=== PATIENT | female | born 1955 | race Caucasian/White ===

== ENCOUNTER 2022-03-15 19:09 | Emergency (ER) | payer OTHER ==
--- OUTSIDE RECORDS SUMMARY | 2022-03-15 19:12 | XMS REPORT | Continuity of Care Document ---
:1955 Author Organization [facility] t Address [address] [place] [address] Care Team Providers Name Role Phone Juan SIEGEL, Rosi Primary Care Physician Juan Attending Clinician Unavailable JULES Attending Clinician Unavailable Jules Donovan MD Attending Clinician Payers Payer Name Policy Type Policy Number Effective Date Expiration Date S lupe MEDICARE A B [id number] 2018 00:00:00 [facility] [facility] [id number] 2022 SUPPLEMENTAL 00:00:00 Problems This patient has no known problems. Allergies, Adverse Reactions, Alerts Allergy Allergy Status Severity Reaction(s) Onset Inactive Treating Comm ents Source Name Type Date Date Clinician Dye Intermediate Propensi Active [facility] Red 3 ty to 03-06 College (Erythro adverse 00:00: of sine) reaction 00 Medicin s to e drug Propoxyp Propensi Active Other [facility] hene ty to 02-28 reaction( College adverse 00:00: s): rash of reaction 00 Medicin s to e drug Darvocet Adverse Active rash Common -N 50 Reaction [facility] Social History Social Habit Start Date Stop Date Quantity Comments Source History [facility] Alcohol Frequency of Medi cine History [facility] Alcohol Std Drinks of Med icine History [facility] Alcohol Binge of Medicine History of tobacco Cigarette Smoker [facility] use of Medicine Alcohol intake 2022-03-06 2022-03-06 1.43 /d [facility] Col lege 00:00:00 00:00:00 of Medicine Alcohol Comment 2022-03-06 2022-03-06 wine, wine [facility] Co llege 00:00:00 00:00:00 coolers. of Medicine Cigarettes smoked 2022-03-06 2022-03-06 [facility] current (pack per 00:00:00 00:00:00 of Medi cine day) - Reported Cigarette 2022-03-06 2022-03-06 [facility] pack-years 00:00:00 00:00:00 of Medicine Tobacco use and 2022-03-06 2022-03-06 Former smokeless [facility] exposure 00:00:00 00:00:00 tobacco user of Medicine [birth year] [facility] [employer]lege 00:00:00 00:00:00 of Medicine Smoking Status Start Date Stop Date Source Ex-smoker 2022-03-06 00:00:00 2022-03-06 00:00:00 [facility] ollege of Medicine Medications Ordered Filled Start Stop Current Ordering Indication Dosage Frequency Signature Comments Components Source Medication Medication Date Date Medication? Clinician (SIG) Name Name alendronate Yes alendronat [facility] (FOSAMAX) 03-06 e 35 mg College 35 MG 16:29: tablet of tablet 29 Medicin e amitriptyli Yes Daily. [facility] (ELAVIL) 03-06 College 10 MG 16:29: of tablet 29 Medicin e busPIRone Yes buspirone [facility] (BUSPAR) 5 03-06 5 mg College MG tablet 16:29: tablet of 29 Medicin e Calcium Yes 1 tablet [facility] Carb-Cholec 03-06 with a Colleg e alciferol 16:29: meal of 500-400 29 Medicin MG-UNIT e TABS Cyclobenzap Yes cyclobenza [facility] rine HCl 03-06 deondre 7.5 Colleg e 7.5 MG TABS 16:29: mg tablet o f 29 Medicin e Diclofenac Yes diclofenac [facility] Sodium 3 % 03-06 3 % [place] GEL 16:29: topical of 29 gel Medicin e duloxetine Yes duloxetine [facility] (CYMBALTA) 03-06 60 mg College 60 MG 16:29: capsule,de of capsule 29 layed Medicin release e estradiol Yes estradiol [facility] (ESTRACE) 03-06 0.01% (0.1 Misty ege 0.1 MG/GM 16:29: mg/gram) of vaginal 29 vaginal Medicin cream cream e INSERT 1/2 GRAM VAGINALLY TWICE A WEEK gabapentin Yes Every 6 [facility] (NEURONTIN) 6-08 hours. Colleg e 300 MG 16:29: of capsule 29 Medicin e gemfibrozil Yes TAKE 1 [facility] (LOPID) 600 03-06 TABLET 30 Col lege MG tablet 16:29: MINUTES of 29 BEFORE Medicin MORNING e AND EVENING MEALS TWICE A DAY hydrocodone Yes hydrocodon Willy -acetaminop 08 e 7.5 College hen (NORCO) 16:29: mg-acetami of 7.5-325 MG 29 nophen 325 Med icin per tablet mg tablet e TAKE 1 TABLET(S) 4 TIMES A DAY BY ORAL ROUTE DIRECTED FOR 28 DAYS. Influenza Yes Fluzone [facility] Vac Split 03-06 Quad [place] Quad 16:29: of (FLUZONE 29 (PF) 60 Medicin QUADRIVALEN mcg (15 e T) 0.5 ML mcg x MELINDA 4)/0.5 mL IM syringe TO BE ADMINISTER ED BY PHARMACIST FOR IMMUNIZATI ON lisinopril Yes lisinopril [facility] (PRINIVIL, 03-06 20 mg [place] ZESTRIL) 20 16:29: tablet of MG tablet 29 Medicin e meloxicam Yes meloxicam [facility] (MOBIC) 7.5 03-06 7.5 mg Colleg e MG tablet 16:29: tablet of 29 Medicin e Multiple Yes Willy Vitamins-Mi 03-06 [place] nerals 16:29: of (MULTIVITAM 29 Medicin INS/MINERAL e S ADULT OR) omeprazole Yes omeprazole [facility] (PRILOSEC) 03-06 40 mg College 40 MG 16:29: capsule,de of capsule 29 layed Medicin release e ondansetron Yes ondansetro [facility] (ZOFRAN) 8 6-08 n HCl 8 mg Col lege mg tablet 16:29: tablet of 29 TAKE 1 Medicin TABLET(S) e EVERY 8 HOURS BY ORAL ROUTE NEEDED FOR 7 DAYS. Pyridoxine Yes Willy HCl 6-08 [place] (VITAMIN 16:29: of B6) 200 MG 29 Medicin TABS e zolpidem Yes zolpidem 5 [facility] kelly (AMBIEN) 5 6-08 mg tablet Misty ege MG tablet 16:29: TAKE 1 of 29 TABLET BY Medicin MOUTH e EVERY DAY AT BEDTIME NEEDED Albuterol Yes ProAir [facility] Sulfate 608 [employer] e (PROAIR 16:29: 90 of RESPICLICK) 29 mcg/actuat Me dicin 108 (90 ion breath e Base) activated MCG/ACT AEPB oxybutynin Yes [id number] 5mg Take 1 [facility] (DITROPAN-X 6-08 Tablet by Col lege L) 5 MG CR 00:00: mouth of tablet 00 daily. Medicin e gabapentin Yes [facility] (NEURONTIN) 6-04 [place] 300 MG 00:00: of capsule 00 Medicin e nitrofurant Yes TAKE 1 [facility] oin, 4-19 CAPSULE BY [place] macrocrysta 00:00: MOUTH of l-monohydra 00 EVERY 12 Medi miley te, HOURS FOR e (MACROBID) 5 DAYS 100 MG capsule predniSONE 2020-09 Yes 2 tablet [facility] kelly (DELTASONE) 2-09 [place] 20 MG 00:00: of tablet 00 Medicin e Estrace Estrace Yes Gema _insert Com mon 03-12 [place] 1/2 gram [facility] 00:[facility]: - [facility] Gabapentin Gabapentin Yes Gema 1 capsule Common [place] [facility] Sertraline Sertraline Yes Gema TAKE 1 Common HCl HCl [place] TABLET Spirit DAILY [facility] Hydrocodone Hydrocodone Yes Gema 1 tablet Common -Acetaminop -Acetaminop [place] as needed Spirit hen hen [facility] Alendronate Alendronate Yes Gema 1 tablet Common Sodium Sodium [place] [facility] ProAir ProAir Yes Gema 2 puffs as Comm on RespiClick RespiClick [place] needed [facility] Daily Multi Daily Multi Yes Gema 1 tablet Common Vitamin/Min Vitamin/Min [place] Spirit erals erals [facility] Calcium Calcium Yes Gema 1 tablet Comm on 500+D3 500+D3 [place] with a [facility] meal [facility] BusPIRone BusPIRone Yes Gema 1 tablet Common HCl HCl [place] [facility] Duloxetine Duloxetine Yes Gema TAKE 1 Common HCl HCl [place] CAPSULE [facility] TWICE [facility] DAILY [facility] Ropinirole Ropinirole Yes Gema 1 tablet Common HCl HCl [place] [facility] Trazodone Trazodone Yes Gema 1 tablet Common HCl HCl [place] at bedtime [facility] Omeprazole Omeprazole Yes Gema 1 capsule Common [place] 30 minutes [facility] before - [facility] morning [facility] Lisinopril Lisinopril Yes Gema TAKE 1 Common [place] TABLET [facility] DAILY [facility] Immunizations Ordered Immunization Filled Immunization Date Status Commen ts Source Name Name Pneumococcal 2021-07-[address] [facility] 13-valent Conjugate 00:00:00 of Me dicine Vaccine Influenza Hd 2021-07-02 Completed [facility] 00:[facility] of Medicine Pritesh J&J 2020-12-15 Completed [facility] e SARS-CoV-2 00:00:00 of Medicine Vaccination Influenza (whole) 2018-08-24 Completed [facility] 00:00:00 of Medicine Vital Signs Vital Name Observation Time Observation Value Comments Source Systolic blood 2022-03-06 21:18:00 120 mm[Hg] [facility] pressure Medicine Diastolic blood 2022-03-06 21:18:00 64 mm[Hg] [facility] Medicine Heart rate 2022-03-06 21:18:00 68 /min [facility] Body temperature 2022-03-06 21:18:00 36.06 [facility] Respiratory rate 2022-03-06 21:18:00 18 /min [facility] Body height 2022-03-06 21:18:[address] [facility] Body weight 2022-03-06 21:18:[address] [facility] BMI 2022-03-06 21:18:00 21.63 kg/m2 [facility] Oxygen saturation in 2022-03-06 21:18:00 99 /min [facility] Arterial blood by [facility] Pulse oximetry Procedures This patient has no known procedures. Plan of Care Planned Activity Planned Date Details Comments Source Future Scheduled 2022-03-08 Screening for [facility] Col lege Test 10:55:28 malignant neoplasm of Medici ne of colon (procedure) [code = 972529889] Future Scheduled 2022-03-08 Screening for [facility] Col lege Test 10:55:28 malignant neoplasm of Medici ne of breast (procedure) [code = 844830385] Future Scheduled 2022-03-08 TETANUS SHOT (ADULT) [facility] College Test 10:55:28 [code = TETANUS SHOT of Medi cine (ADULT)] Future Scheduled 2022-03-08 Hepatitis C [facility] Misty ege Test 10:55:28 screening of Medicine (procedure) [code = 081112400] Future Scheduled 2022-03-08 ZOSTER VACCINE (1 of [facility] k[facility] College Test 10:55:28 2) [code = ZOSTER of Medicin e VACCINE (1 of 2)] Future Scheduled 2022-03-08 COVID-19 Vaccine (3 [facility] [employer] Test 10:55:28 - Booster for of Medicine Pritesh series) [code = COVID-19 Vaccine (3 - Booster for Pritesh series)] Future Scheduled 2022-03-08 FALL SCREEN [code = [facility] Test 10:55:28 FALL SCREEN] of Medicine Future Scheduled 2022-03-08 Screening for [facility] Col lege Test 10:55:28 osteoporosis of Medicine (procedure) [code = 417928059] Future Scheduled 2022-03-08 FLU VACCINE > 6 [facility] ollege Test 10:55:28 MONTHS [code = FLU of Medici ne VACCINE > 6 MONTHS] Future Scheduled 2022-03-08 MEDICARE AWV [facility] Misty ege Test 10:55:28 (Initial) [code = of Medicin e MEDICARE AWV (Initial)] Future Scheduled 2022-03-08 Pneumococcal 65+ (2 [facility] Test 10:55:28 - PPSV23 or PCV20) of Medici ne [code = Pneumococcal 65+ (2 - PPSV23 or PCV20)] Future Scheduled 2022-03-06 US 1 Occurrences Willy Col lege Test 16:42:43 TRANSVAGINAL/PELVIS starting of Medic ine [code = 45466-6] 03/06/2022 until 03/06/2023 Encounters Start End Encounter Admission Attending Care Care Encounter Source Date/Time Date/Time Type Type Clinicians Facility Department ID 2022-02-19 Outpatient [place], [facility] [id number] Common 10:41:[address] [facility] 2022-02-07 Out[place], [facility] Common 13:37:[address] [facility] 2022-01-01 Outpatient [place], [facility] Common 08:40:[address] [facility] 2021-12-28 Outpatient [place], [facility] [id number] Common 08:11:[address] [facility] 2021-11-22 Outpatient [place], [facility] [id number] Common 10:59:[address] [facility] 2021-10-24 Outpatient [place], STLMLC STLC Common 14:22:[id number] [facility] 2021-10-24 Outpatient [place], [facility] Common 13:56:[id number] [facility] 2021-10-24 Outpatient [place], [facility] [id number] Common 13:44:[id number] [facility] 2021-10-24 Outpatient [place], STLC ST[facility] [id number] Common 12:42:[id number] [facility] 2021-10-24 Outpatient [place], [facility] [id number] Common 12:34:[id number] [facility] 2021-10-24 Outpatient [place], STLMLC [facility] [id number] Common 12:18:[id number] [facility] 2021-10-24 Outpatient [place], STLMLC ST[facility] [id number] Common 12:17:[id number] [facility] 2021-10-24 Outpatient [place], STLMLC ST[facility] [id number] Common 12:04:[id number] [facility] 2021-10-24 Outpatient [place], STLMLC STL[facility]C [id number] Common 11:29:[id number] [facility] 2021-10-24 Outpatient [place], STLMLC STL[facility]C [id number] Common 11:07:[id number] [facility] 2021-10-24 Outpatient [place], STLMLC STL[facility] [id number] Common 11:04:[id number] [facility] 2021-10-24 Outpatient [place], STLMLC ST[facility]C [id number] Common 11:00:[id number] [facility] 2021-10-24 Outpatient [place], STLMLC STL[facility] [id number] Common 10:58:[id number] [facility] 2021-10-24 Outpatient [place], STLMLC ST[facility] [id number] Common 10:57:[id number] [facility] 2022-03-13 2022-03-13 ambulatory STLMLC ST[facility] [id number] Common 00:00:00 00:00:00 [facility] 2022-03-07 2022-03-07 Outpatient [facility]ÍS [facility] [id number] SLE 00:00:00 00:00:00 FEROZ 2022-03-06 2022-03-06 Office MAGDA Powell [id number] [place] [address] 17:00:00 17:30:00 Visit Feroz AMBULATOR [id number] College Y [id number] of [id number] [facility] 300 e 2022-02-28 2022-02-28 ambulatory STLMLC ST[facility] [id number] Common 00:00:00 00:00:00 [facility] 2022-02-21 2022-02-21 ambulatory STLMLC STL[facility]C [id number] Common 00:00:00 00:00:00 [facility] 2022-02-15 2022-02-15 ambulatory STLMLC STLMLC [id number] Common 00:00:00 00:00:00 [facility] 2022-02-05 2022-02-05 ambulatory STLMLC STLMLC [id number] Common 00:00:00 00:00:00 [facility] 2022-01-01 2022-01-01 ambulatory STLMLC STLMLC [id number] Common 00:00:00 00:00:00 [facility] 2021-12-11 2021-12-11 ambulatory STLMLC STLMLC [id number] Common 00:00:00 00:00:00 [facility] 2021-12-04 2021-12-04 ambulatory STLMLC STLMLC [id number] Common 00:00:00 00:00:00 [facility] 2021-11-19 2021-11-19 ambulatory STLMLC STL[facility]C [id number] Common 00:00:00 00:00:00 [facility] 2021-10-08 2021-10-08 ambulatory STLMLC STL[facility]C [id number] Common 00:00:00 00:00:00 [facility] 2021-10-03 2021-10-03 ambulatory STLMLC STL[facility]C [id number] Common 00:00:00 00:00:00 [facility] 2021-09-13 2021-09-13 ambulatory STLMLC STLMLC [id number] Common 00:00:00 00:00:00 [facility] 2021-09-06 2021-09-06 ambulatory STLMLC STLMLC [id number] Common 00:00:00 00:00:00 [facility] 2021-09-06 2021-09-06 ambulatory STLMLC ST[facility]C [id number] Common 00:00:00 00:00:00 [facility] 2021-07-29 2021-07-29 ambulatory STLMLC STLMLC [id number] Common 00:00:00 00:00:00 [facility] 2021-07-04 2021-07-04 Outpatient STLMLC STLMLC [id number] Common 00:00:00 00:00:00 [facility] 2021-07-02 2021-07-02 Outpatient STLMLC STLMLC [id number] Common 00:00:00 00:00:00 [facility] 2021-03-16 2021-03-16 Outpatient STLMLC STLMLC [id number] Common 00:00:00 00:00:00 [facility] 2021-02-05 2021-02-05 Outpatient STLMLC STLMLC [id number] Common 00:00:00 00:00:00 [facility] 2021-01-11 2021-01-11 Outpatient STLMLC STLMLC [id number] Common 00:00:00 00:00:00 [facility] 2021-01-11 2021-01-11 Outpatient STLMLC STLMLC [id number] Common 00:00:00 00:00:00 [facility] 2021-01-04 2021-01-04 Outpatient STLMLC STLMLC [id number] Common 00:00:00 00:00:00 [facility] 2020-12-26 2020-12-26 Outpatient STLMLC STLMLC [id number] Common 00:00:00 00:00:00 [facility] 2020-12-15 2020-12-15 Outpatient STLMLC STLMLC [id number] Common 00:00:00 00:00:00 [facility] 2020-12-14 2020-12-14 Outpatient STLMLC STLMLC [id number] Common 00:00:00 00:00:00 [facility] 2020-12-13 2020-12-13 Outpatient STLMLC STLMLC [id number] Common 00:00:00 00:00:00 [facility] 2020-12-05 2020-12-05 Outpatient STLMLC STLMLC [id number] Common 00:00:00 00:00:00 [facility] 2020-11-27 2020-11-27 Outpatient STLMLC STLMLC [id number] Common 00:00:00 00:00:00 [facility] 2020-10-06 2020-10-06 Outpatient STLMLC ST[facility]C [id number] Common 00:00:00 00:00:00 [facility] 2020-09-04 2020-09-04 Outpatient STLMLC STLMLC [id number] Common 00:00:00 00:00:00 [facility] 2020-07-21 2020-07-21 Outpatient STLMLC STLMLC [id number] Common 00:00:00 00:00:00 [facility] 2020-07-12 2020-07-12 Outpatient STLMLC STLMLC [id number] Common 00:00:00 00:00:00 [facility] 2020-07-11 2020-07-11 Outpatient STLMLC STLMLC [id number] Common 00:00:00 00:00:00 [facility] 2020-07-11 2020-07-11 Outpatient STLMLC STLMLC [id number] Common 00:00:00 00:00:00 [facility] 2020-05-08 2020-05-08 [facility] [id number] Common 14:00:00 14:00:00 [facility] 2020-04-06 2020-04-06 [facility] [id number] Common 08:40:00 08:40:00 [facility] 2020-04-03 2020-04-03 [facility] [id number] Common 10:15:00 10:15:00 t Specialty/U Sp ugo Specialty rology - [facility]rology Clinic [facility] 2020-02-23 2020-02-23 [facility] [id number] Common 09:03:00 09:03:[address] [facility] 2019-11-25 2019-11-25 [facility] [id number] Common 10:09:00 10:09:[address] [facility] 2019-11-09 2019-11-09 [facility] [id number] Common 10:20:00 10:20:[address] [facility] 2019-10-29 2019-10-29 [facility] [id number] Common 09:48:00 09:48:[address] [facility] 2019-10-11 2019-10-11 [facility] [id number] Common 11:27:00 11:27:[address] [facility] 2019-10-08 2019-10-08 [facility] [id number] Common 11:32:00 11:32:[address] [facility] 2019-10-04 2019-10-04 [facility] [id number] Common 10:00:00 10:00:00 t Specialty/U Sp ugo Specialty rology - [facility] 2019-09-30 2019-09-30 [facility] [id number] Common 11:26:00 11:26:[address] [facility] 2019-09-24 2019-09-24 [facility] [id number] Common 11:13:00 11:13:[address] [facility] 2019-09-01 2019-09-01 [facility] [id number] Common 10:30:00 10:30:[address] [facility] 2019-07-05 2019-07-05 [facility] [id number] Common 19:17:00 19:17:[address] [facility] [address] Sp[address] [facility] [address] [facility] 2019-07-01 2019-07-01 [facility] [id number] Common 09:30:00 09:30:00 t Specialty/U Sp ugo Specialty rology - [facility] 2019-06-29 2019-06-29 [facility] [id number] Common 15:41:00 15:41:[address] [facility] [address] Spir it [facility] 2019-06-09 2019-06-09 [facility] [id number] Common 14:44:00 14:44:00 t [facility] 2019-06-03 2019-06-03 [facility] [id number] Common 13:45:00 13:45:00 t Specialty/U Sp ugo Specialty rology - [facility] 2019-05-27 2019-05-27 [facility] [id number] Common 11:26:00 11:26:00 t Urgent Urgent Care S [facility] 2019-05-27 2019-05-27 [facility] [id number] Common 10:30:00 10:30:00 t [facility] 2019-05-10 2019-05-10 [facility] [id number] Common 08:40:00 08:40:[address] [facility] [address] Spir [facility] 2019-05-03 2019-05-03 [facility] [id number] Common 08:40:00 08:40:[address] [facility] [address] [facility] [facility] [address] [facility] 2018-11-23 2018-11-23 [facility] [id number] Common 16:00:00 16:00:[address] [facility] [address] Sp[address] [facility] [address] [facility] 2018-11-16 2018-11-16 Outpatient Ramy Chapman [id number] Common 11:48:00 11:48:[address] [facility] [address] [facility] [address] [facility] 2018-11-11 2018-11-11 Outpatient Ramy Mccannt [id number] Common 14:09:00 14:09:[address] [facility] [address] Sp[address] [facility] [address] [facility] 2018-05-26 2018-05-26 Outpatient Ramy Chapman [id number] Common 08:30:00 08:30:00 t [facility] - [facility] 2018-03-12 2018-03-12 Outpatient Ramy Chapman [id number] Common 10:00:00 10:00:00 t [facility] Care Care [facility] - [facility] Results This patient has no known results.
[2022-03-15] MEDS ORDERED: MORPHINE 4 MG/ML SYR ONE (19:45)
[2022-03-15 19:56] LABS: Urine Blood Negative (Negative); Urine Glucose Negative (Negative); Urine Protein Negative (Negative); Urine pH 5.5 (5.0-7.0)
[2022-03-15 20:09] LABS: Urine Bacteria NONE SEEN /HPF (<20); Urine RBC <5 /HPF (NONE SEEN)
[2022-03-15 20:10] LABS: Absolute Lymphocytes (CBC) 2.5 K/uL (0.7-4.9); Hematocrit 30.4 % (36.0-45.0); Lymphocytes % 25.7 % (15.3-44.8); RBC Red Blood Cell Count 3.52 M/uL (3.86-4.86)
[2022-03-15 20:22] LABS: Albumin 3.8 g/dL (3.4-5.0); Bilirubin Total 0.4 mg/dL (0.2-1.0); Potassium 3.4 mmol/L (3.5-5.1); Protein, Total 7.2 g/dL (6.4-8.2)
--- NOTE | 2022-03-15 20:30 | RAD REPORT ---
EXAM DESCRIPTION: US - Pelvis Complete - 03/15/2022 8:14 pm CLINICAL HISTORY: hx of ovarian cyst, rule out torsion, LLQ abd COMPARISON: Transvaginal Study Probe dated 03/08/2022; Abdomen Pelvis Wo Contrast dated 02/26/2022 FINDINGS: Large complex cystic adnexal mass measuring 14 x 9.7 cm is again identified. This is littl e changed from the prior CT dated 02/26/2022 and prior ultrasound. A distinct ovary was not identifie d. The uterus was not visualized. IMPRESSION: No discrete ovaries or uterus visualized. Septated cystic pelvic mass not significantly changed from the prior ultrasound dated 03/08/[address] from 02/26/2022.
--- NOTE | 2022-03-15 21:15 | RAD REPORT ---
EXAM DESCRIPTION: CTAbdomen Pelvis W Contrast - 03/15/2022 9:01 pm CLINICAL HISTORY: Abdominal pain, acute, nonlocalized COMPARISON: Abdomen Pelvis Wo Contrast dated 02/26/2022 TECHNIQUE: CT of the abdomen and pelvis was performed. All CT scans are performed using dose optimization technique as appropriate and may include automated exposure control or mA/KV adjustment according to patient size. FINDINGS: Lower chest: No acute abnormality. Liver: No acute abnormality or suspicious lesions. Biliary: No biliary ductal dilatation. Stomach: No significant focal abnormality. Duodenum: No significant focal abnormality. Pancreas: No significant abnormality. Spleen: No significant abnormality. Adrenal: No suspicious lesions. Kidney/ureter: Mild right-sided hydroureteronephrosis. No obstructing stone is seen. This may be seco ndary to mass from the cystic pelvic mass. The left kidney is within normal limits. Retroperitoneum: No retroperitoneal adenopathy. Vascular: No aneurysm. Bowel: No significant focal abnormality. Normal appendix. Peritoneum: No ascites or free air. Bladder: Grossly unremarkable. Reproductive: Septated cystic mass in the pelvis measures 12.6 x 10.6 cm and is similar in size. Smal ler cystic structure dorsal to the mass as seen on image 66, series 501 may represent the right ovary . This likely shifted in position compared with the prior CT from 02/26/2022. The overall appearance is similar. Question displaced uterus with mass effect by the large complex cystic mass. . A discrete left ovary is not identified. Bones: No acute fracture. Other: n/a IMPRESSION: Compared with 02/26/2022, some change in positioning of the largest septated pelvic mass which may be adnexal in etiology. What is likely the right ovary has also shifted from the right low er quadrant into the pelvis. No new findings are present, however, to explain worsening pain. Unchang ed mild right-sided hydronephrosis which is likely due to mass effect on the ureter.
--- NOTE | 2022-03-15 21:28 | EDPHYS ---
Physician Documentation [facility] Name: Carina Quinn Age: 66 yrs Sex: Female : 1955 Arrival Date: 03/15/2022 Time: 19:11 Bed 5 Private MD: ED Physician Kali Simons HPI: 03/15 19:28 This 66 yrs old Female presents to ER via Wheelchair with complaints of Abdominal Pain. rn 19:28 The patient presents with abdominal pain in the left lower quadrant. Onset: The rn symptoms/episode began/occurred 1 month(s) ago. The symptoms do not radiate. Associated signs and symptoms: Pertinent positives: nausea, Pertinent negatives: blood in stools, chest pain, constipation, diarrhea, dysuria, fever, vomiting blood. The symptoms are described as sharp, stabbing. Modifying factors: The symptoms are alleviated by nothing, the symptoms are aggravated by nothing. Severity of pain: At its worst the pain was moderate in the emergency department the pain is unchanged. The patient has experienced similar episodes in the past. The patient has been recently seen by a physician:. Pt reports has large left ovarian cyst, has been hurting in LLQ for about 1 month, on pain medication by pain management, norco 10, states pain became worse today in afternoon, pain medication not getting rid of pain. No vaginal bleeding.. Historical: - Allergies: 19:26 Darvocet-N 100; tw5 - Immunization history:: Flu vaccine is up to date. - Social history:: Smoking status: Patient/guardian denies using tobacco, the patient reports quitting approximately 26 years ago. - Family history:: not pertinent. - Hospitalizations: : No recent hospitalization is reported. ROS: 19:28 Constitutional: Negative for fever, chills, and weight loss, Eyes: Negative for injury, rn pain, redness, and discharge, Neck: Negative for injury, pain, and swelling, Cardiovascular: Negative for chest pain, palpitations, and edema, Respiratory: Negative for shortness of breath, cough, wheezing, and pleuritic chest pain, Abdomen/GI: Negative for nausea, vomiting, diarrhea, and constipation, Back: Negative for injury and pain, : Negative for injury, bleeding, discharge, and swelling, MS/Extremity: Negative for injury and deformity, Skin: Negative for injury, rash, and discoloration, Neuro: Negative for headache, weakness, numbness, tingling, and seizure. Exam: 19:28 Constitutional: This is a well developed, well nourished patient who is awake, alert, rn and in no acute distress. Head/Face: Normocephalic, atraumatic. Cardiovascular: Regular rate and rhythm. No pulse deficits. Respiratory: No increased work of breathing, no retractions or nasal flaring. Abdomen/GI: soft, + tender suprapubic and LLQ, no rebound Skin: Warm, dry MS/ Extremity: Pulses equal, no cyanosis Neuro: Awake and alert, GCS 15 Vital Signs: 19:20 BP 131 / 73; Pulse 72; Resp 18; Temp 98.6(O); Pulse Ox 99% ; Weight 56.7 kg; Height 5 tw5 ft. 4 in. (162.56 cm); Pain 8/10; 19:57 BP 131 / 73; Pulse 67; Resp 18 S; Pulse Ox 99% on R/A; as6 21:00 BP 141 / 76; Pulse 63; Resp 18 S; Pulse Ox 100% on R/A; as6 22:10 BP 130 / 75; Pulse 67; Resp 18 S; Pulse Ox 98% on R/A; as6 19:20 Body Mass Index 21.46 (56.70 kg, 162.56 cm) tw5 MDM: 19:13 Patient medically screened. rn 21:26 Differential diagnosis: acute on chronic pain, ovarian torsion, pelvic mass. Data rn reviewed: vital signs, nurses notes, lab test result(s), radiologic studies, CT scan, ultrasound, and as a result, I will discharge patient. Counseling: I had a detailed discussion with the patient and/or guardian regarding: the historical points, exam findings, and any diagnostic results supporting the discharge/admit diagnosis, lab results, radiology results, the need for outpatient follow up, to return to the emergency department if symptoms worsen or persist or if there are any questions or concerns that arise at home. Response to treatment: the patient's symptoms have markedly improved after treatment, and as a result, I will discharge patient. Special discussion: I discussed with the patient/guardian in detail that at this point there is no indication for admission to the hospital. It is understood, however, that if the symptoms persist or worsen the patient needs to return immediately for re-evaluation. ED course: NO acute changes on imaging. Stable vitals. Will dc home with continued care as being done.. 03/15 19:24 Order name: CBC with Diff; Complete Time: 20:31 rn 03/15 19:24 Order name: CMP; Complete Time: 20:25 rn 03/15 19:24 Order name: Lipase; Complete Time: 20:25 rn 03/15 19:24 Order name: Urine Microscopic Only; Complete Time: 20:25 rn 03/15 19:24 Order name: CT Abd/Pelvis - IV Contrast Only rn 03/15 19:56 Order name: Urine Dipstick-Ancillary; Complete Time: 20:25 EDMS 03/15 19:24 Order name: IV Saline Lock; Complete Time: 19:55 rn 03/15 19:24 Order name: Labs collected and sent; Complete Time: 19:55 rn 03/15 19:24 Order name: Urine Dipstick-Ancillary (obtain specimen); Complete Time: 19:55 rn 03/15 19:24 Order name: US Pelvis Complete; Complete Time: 21:26 rn 03/15 19:28 Order name: Abdomen ; Complete Time: 21:26 EDMS Administered Medications: 19:40 Drug: morphine 4 mg Route: IVP; Infused Over: 4 mins; Site: right forearm; as6 22:12 Follow up: Response: No adverse reaction as6 Disposition Summary: 03/15/22 21:27 Discharge Ordered Location: Home rn Problem: an ongoing problem rn Symptoms: have improved rn Condition: Stable rn Diagnosis - Lower abdominal pain, unspecified rn - Other intra-abdominal and pelvic swelling, mass and lump rn Followup: rn - With: Private Physician - When: As needed - Reason: Recheck today's complaints, Re-evaluation by your physician Discharge Instructions: - Discharge Summary Sheet rn - Abdominal Pain, Adult rn - Pelvic Mass, Female rn Forms: - Medication Reconciliation Form rn - Thank You Letter rn - Antibiotic learning designer - Prescription Opioid Use rn Signatures: Dispatcher [employer] EDKali Mg MD MD rn Wood, Tiffany tw5 Glen Cisneros RN RN as6 Corrections: (The following items were deleted from the chart) 19:27 19:26 Allergies: No Known Allergies; 5 tw5
--- NOTE | 2022-03-15 21:28 | ER ---
Nurse's Notes [facility] Name: Carina Quinn Age: 66 yrs Sex: Female : 1955 Arrival Date: 03/15/2022 Time: 19:11 Bed 5 Private MD: Diagnosis: Lower abdominal pain, unspecified;Other intra-abdominal and pelvic swelling, mass and lump Presentation: 03/15 19:20 Chief complaint: Patient states: " I have a cyst on my ovary and the pain is getting tw5 worse.". Coronavirus screen: Vaccine status: Patient reports receiving the 2nd dose of the covid vaccine. J and J and Moderna. Ebola Screen: Patient negative for fever greater than or equal to 101.5 degrees Fahrenheit, and additional compatible Ebola Virus Disease symptoms Patient denies exposure to infectious person. Patient denies travel to an Ebola-affected area in the 21 days before illness onset. Initial Sepsis Screen: Does the patient meet any 2 criteria? No. Patient's initial sepsis screen is negative. Does the patient have a suspected source of infection? Yes: Acute abdominal pain. Risk Assessment: Do you want to hurt yourself or someone else? Patient reports no desire to harm self or others. Onset of symptoms is unknown. 19:20 Method Of Arrival: Wheelchair tw5 19:20 Acuity: SYDNEY 2 tw5 Triage Assessment: 19:26 General: Appears uncomfortable, Behavior is restless. Pain: Complains of pain in left tw5 lower quadrant Pain currently is 8 out of 10 on a pain scale. GI: Reports nausea. Historical: - Allergies: 19:26 Darvocet-N 100; tw5 - Immunization history:: Flu vaccine is up to date. - Social history:: Smoking status: Patient/guardian denies using tobacco, the patient reports quitting approximately 26 years ago. - Family history:: not pertinent. - Hospitalizations: : No recent hospitalization is reported. Screenin:57 Abuse screen: Denies threats or abuse. Denies injuries from another. Nutritional as6 screening: No deficits noted. Tuberculosis screening: No symptoms or risk factors identified. Fall Risk None identified. Assessment: 19:40 General: Appears uncomfortable, Behavior is calm, cooperative. General: Behavior is as6 restless. Pain: Complains of pain in abdomen and left lower quadrant Quality of pain is described as crampy, sharp. Neuro: Olvera Agitation-Sedation Scale (RASS): +1 Restless Level of Consciousness is awake, alert, obeys commands, Oriented to person, place, time, situation. Cardiovascular: JVD is absent Patient's skin is warm and dry. Respiratory: Respiratory effort is even, unlabored, Respiratory pattern is regular, symmetrical. GI: Reports lower abdominal pain, cramping, diarrhea, nausea, vomiting. Vital Signs: 19:20 BP 131 / 73; Pulse 72; Resp 18; Temp 98.6(O); Pulse Ox 99% ; Weight 56.7 kg; Height 5 tw5 ft. 4 in. (162.56 cm); Pain 8/10; 19:57 BP 131 / 73; Pulse 67; Resp 18 S; Pulse Ox 99% on R/A; as6 21:00 BP 141 / 76; Pulse 63; Resp 18 S; Pulse Ox 100% on R/A; as6 22:10 BP 130 / 75; Pulse 67; Resp 18 S; Pulse Ox 98% on R/A; as6 19:20 Body Mass Index 21.46 (56.70 kg, 162.56 cm) tw5 ED Course: 19:11 Patient arrived in ED. as 19:13 Kali Simons MD is Attending Physician. rn 19:26 Triage completed. tw5 19:26 Arm band placed on right wrist. tw5 19:33 Glen Cisneros, [place] is Primary Nurse. as6 19:40 Inserted saline lock: 18 gauge in right forearm, using aseptic technique. Blood as6 collected. 20:04 Placed in gown. Bed in low position. Call light in reach. Side rails up X2. Pulse ox as6 on. NIBP on. 20:16 US Pelvis Complete In Process Unspecified. EDMS 21:03 Abdomen In Process Unspecified. EDMS 22:11 No provider procedures requiring assistance completed. IV discontinued, intact, as6 bleeding controlled, No redness/swelling at site. Pressure dressing applied. Administered Medications: 19:40 Drug: morphine 4 mg Route: IVP; Infused Over: 4 mins; Site: right forearm; as6 22:12 Follow up: Response: No adverse reaction as6 Medication: 22:11 VIS not applicable for this client. as6 Outcome: 21:27 Discharge ordered by . rn 22:11 Discharged to home ambulatory, with significant other. as6 22:11 Condition: stable 22:11 Discharge instructions given to patient, Instructed on discharge instructions, follow up and referral plans. Demonstrated understanding of instructions, follow-up care. 22:12 Patient left the ED. as6 Signatures: Dispatcher [employer] Ariana Osman Roman, MD MD rn Wood, Tiffany tw5 Glen Cisneros RN RN as6 Corrections: (The following items were deleted from the chart) 19:27 19:26 Allergies: No Known Allergies; 5 tw5
[2022-03-15 22:27] VITALS: TEMP 98.6
[2022-03-15 22:33] VITALS: BP 130/75; O2SAT 98
== END 2022-03-15 22:12 | disposition home or self-care (01) ==
LOC: ER 19:09
DX: R19.00 Intra-abdominal and pelvic swelling, mass and lump, unspecified site (principal); Z88.5 Allergy status to narcotic agent
CPT/HCPCS: 85025; 36415; 83690; 80053; 74177; 76856; 96374; 99284; Q9967; 81003; 81015

== ENCOUNTER → 2023-12-06 | Emergency (ER) | payer OTHER ==
[~2023-12-06] MED LIST: CYCLOBENZAPRINE 10 MG TAB ONE; HYDROCODONE/APAP 10/325 TAB ONE; KETOROLAC 30 MG/ML INJ ONE; ONDANSETRON 4 MG (ODT) TAB ONE; PROMETHAZINE 25 MG TABLET ONE; TDAP (DIPHTH,PERTUSS(ACELL),TET VAC) 0.5 ML VIAL IMVAC ONE
--- NOTE | 2023-12-06 06:34 | ER ---
Nurse's Notes [facility] Name: Carina Quinn Age: 68 yrs Sex: Female : 1955 Arrival Date: 12/06/2023 Time: 03:15 Bed 5 Private MD: Diagnosis: L1 vertebra superior endplate compression fracture without retropulsion , acute fall at home, acute spinal injury Presentation: 12/05 03:20 Chief complaint: EMS states: toned out for back pain; pt also reports multiple falls km8 due to the pain. Coronavirus screen: Client denies travel out of the [place] in the last 14 days. Ebola Screen: No symptoms or risks identified at this time. Initial Sepsis Screen: Does the patient meet any 2 criteria? No. Patient's initial sepsis screen is negative. Does the patient have a suspected source of infection? No. Patient's initial sepsis screen is negative. Risk Assessment: Do you want to hurt yourself or someone else? Patient reports no desire to harm self or others. Onset of symptoms was December 06, 2023. 03:20 Method Of Arrival: EMS: [facility] km8 03:20 Acuity: SYDNEY 3 km8 Triage Assessment: 03:20 General: Appears uncomfortable, Behavior is cooperative, anxious, restless. Pain: km8 Complains of pain in left low back Pain currently is 10 out of 10 on a pain scale. Quality of pain is described as aching. EENT: No signs and/or symptoms were reported regarding the EENT system. Neuro: Level of Consciousness is awake, alert, obeys commands, Oriented to person, place, time, situation. Cardiovascular: Denies chest pain, shortness of breath, Patient's skin is warm and dry. Respiratory: Airway is patent Respiratory effort is even, unlabored, Respiratory pattern is regular, symmetrical. GI: No signs and/or symptoms were reported involving the gastrointestinal system. : No signs and/or symptoms were reported regarding the genitourinary system. Derm: Skin is intact, is healthy with good turgor, Skin is dry, Skin is pink, warm \T\ dry. normal, Skin temperature is warm Wound noted forehead Wound is abrasion. Musculoskeletal: Range of motion: intact in all extremities, Reports weakness in generalized pain in back Pain is 10 out of 10 on a pain scale. Historical: - Allergies: 03:24 Darvocet-N 100; km8 - Home Meds: 03:27 hydrocodone-acetaminophen 10-325 mg Oral tablet 2 times per day [Active]; gabapentin km8 300 mg oral capsule four times a day [Active]; omeprazole 40 mg Oral capsule,delayed release (e.c.) [Active]; gemfibrozil 600 mg Oral tablet [Active]; sertraline 100 mg oral tablet 1 tab daily [Active]; buspirone 5 mg Oral tablet 2 times per day [Active]; lisinopril 20 mg Oral tablet once [Active]; ropinirole 2 mg oral tablet 2 times per day [Active]; trazodone 100 mg Oral tablet every day at bedtime [Active]; Vitamin B-6 100 mg Oral tablet 2 times per day [Active]; alendronate 35 mg oral tablet 1 tab every week [Active]; ProAir RespiClick 90 mcg/actuation inhalation Aerosol Powder, Breath Activated as needed [Active]; multivitamin oral tablet [Active]; Melatonin Oral [Active]; - PMHx: 03:24 Fibromyalgia; degenerative disc disease; Hypertensive disorder; Asthma; km8 Hypercholesterolemia; Arthritis; Sleep apnea; Depressive disorder; Anxiety; Osteoporosis; sciatica; - PSHx: 03:26 D\T\C; breast augmentation; Total abdominal hysterectomy; km8 Historical Immunization: - Administered Vaccines 06:30 Reading PO 10 mg-325 mg 1 tabs 06:30 Ondansetron PO 4 mg [facility] 03:46 Tetanus-Diphtheria Toxoid IM Adult 0.5 ml 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 - Social history:: Smoking status: Patient denies any tobacco usage or history of. Patient uses alcohol, on a daily basis. street drugs, marijuana. - Family history:: not pertinent. Screenin:23 [facility] ED Fall Risk Assessment (Adult) History of falling in the last 3 months, km8 including since admission Yes- fall prone (multiple falls) (3 pts) Confusion or Disorientation No (0 pts) Intoxicated or Sedated No (0 pts) Impaired Gait Yes (1 pt) Mobility Assist Device Used No (0 pt) Altered Elimination No (0 pt) Score/Fall Risk Level 3 or more points = High Risk Oriented to surroundings, Maintained a safe environment, Educated pt \T\ family on fall prevention, incl call for assistance when getting out of bed, Assessed \T\ reinforced patient's understanding of fall precautions, Provided non-skid footwear, Hourly rounding (assess needs \T\ fall precautionary measures) done, Used ambulatory aids as needed (educated on \T\ assisted with), Used gait belt as appropriate Implemented a Fall Risk Plan of Care, Remained w/in arm's length of patient and in sight while toileting, Offered frequent toileting (1:1 observation), Remained with patient while ambulating. Abuse screen: Denies threats or abuse. Denies injuries from another. Nutritional screening: No deficits noted. Tuberculosis screening: No symptoms or risk factors identified. Assessment: 03:23 Reassessment: see triage notes/assessment. Neuro: Level of Consciousness is awake, km8 alert, obeys commands, Oriented to person, place, time, situation. 05:00 Reassessment: Patient appears in no apparent distress at this time. No changes from km8 previously documented assessment. Patient and/or family updated on plan of care and expected duration. Pain level reassessed. Patient is alert, oriented x 3, equal unlabored respirations, skin warm/dry/pink. 06:00 Reassessment: Patient appears in no apparent distress at this time. Patient and/or km8 family updated on plan of care and expected duration. Pain level reassessed. Patient is alert, oriented x 3, equal unlabored respirations, skin warm/dry/pink. Patient states symptoms have improved. Vital Signs: 03:20 BP 110 / 75; Pulse 69; Resp 18; Temp 98.4(TE); Pulse Ox 99% on R/A; Weight 58.97 kg km8 (R); Height 5 ft. 3 in. (R); Pain 10/10; 04:00 BP 110 / 75; Pulse 70; Resp 17 S; Pulse Ox 99% on R/A; ha1 05:00 Pulse 68; Resp 16; Pulse Ox 99% on R/A; km8 05:24 BP 120 / 77; Pulse 84; Resp 16; Pulse Ox 97% on R/A; km8 06:46 BP 125 / 76; Pulse 72; Resp 16; Temp 98.2(TE); Pulse Ox 100% on R/A; Pain 6/10; km8 03:20 Body Mass Index 23.03 (58.97 kg, 160.02 cm) km8 03:20 Pain Scale: Adult km8 06:46 Pain Scale: Adult km8 Hartline Coma Score: 03:23 Eye Response: spontaneous(4). Motor Response: obeys commands(6). Verbal Response: km8 oriented(5). Total: 15. 03:42 Eye Response: spontaneous(4). Motor Response: obeys commands(6). Verbal Response: sp4 oriented(5). Total: 15. NIH Stroke Scale Scores: 03:42 NIHSS Score: 0 sp4 ED Course: 03:19 Patient arrived in ED. km8 03:20 Arm band placed on right wrist. km8 03:21 Gallito Gregory MD is Attending Physician. sp4 03:21 Triage completed. km8 03:23 Patient has correct armband on for positive identification. Bed in low position. Call km8 light in reach. Side rails up X2. Pulse ox on. NIBP on. Door closed. Warm blanket given. 03:23 Patient maintains SpO2 saturation greater than 95% on room air. km8 04:21 CT Traumagram (Head C Spine CAP wo con) In Process Unspecified. EDMS 06:33 Dano Howard DO is Referral Physician. sp4 06:48 Provided Education on: fall prevention at home. km8 06:48 No provider procedures requiring assistance completed. Patient did not have IV access km8 during this emergency room visit. Administered Medications: 03:30 Drug: Reading PO 10 mg-325 mg 1 tabs PO once Route: PO; ha1 05:00 Follow up: Response: No adverse reaction; Pain is decreased km8 03:30 Drug: Cyclobenzaprine PO 10 mg PO once Route: PO; ha1 06:31 Follow up: Response: No adverse reaction; Pain is decreased km8 03:30 Drug: Promethazine PO 25 mg PO once Route: PO; ha1 05:00 Follow up: Response: No adverse reaction; Pain is decreased km8 03:33 Drug: Ketorolac IM 30 mg IM once Route: IM; Site: right deltoid; ha1 05:00 Follow up: Response: No adverse reaction; Pain is decreased km8 03:46 Drug: Tetanus-Diphtheria Toxoid IM Adult 0.5 ml IM once; Provide Vaccine Information ha1 Statement (VIS). 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[employer]; Exp: FriOct 11 2025; Lot #: [id number]; Series: 1 of 1; Patient Consent: Obtained; Date/Time: ; Source Name: Carina Quinn; Source Relationship: Self; Address Information: [address] [place] [address]; ; Education: Provided; VIS Presented Date: ; VIS Publication: Tetanus/Diphtheria (Td) VIS 11/02/2013 (historic)} Route: IM; Site: left deltoid; 06:31 Follow up: Response: No adverse reaction km8 06:30 Drug: Reading PO 10 mg-325 mg 1 tabs PO once Route: PO; km8 06:47 Follow up: Response: No adverse reaction; Pain is decreased km8 06:30 Drug: Ondansetron PO 4 mg PO once Route: PO; km8 06:47 Follow up: Response: No adverse reaction km8 Medication: 06:48 VIS not applicable for this client. km8 Outcome: 06:34 Discharge ordered by . sp4 06:48 Discharged to home via wheelchair, with significant other, km8 06:48 Condition: good 06:48 Discharge instructions given to patient, Instructed on discharge instructions, follow up and referral plans. medication usage, Demonstrated understanding of instructions, follow-up care, medications, Prescriptions given X 3, 06:57 Patient left the ED. km8 NIH Stroke Scale - NIH Stroke Score Date: 12/06/2023 Time: 03:42 Total Score = 0 10. Dysarthria (speech clarity - read or repeat words) - 0(Normal) 11. Extinction and Inattention (visual/tactile/auditory/spatial/personal) - 0(No abnormality) 1a. Level of Consciousness (LOC) - 0(Alert) 1b. Level of Consciousness (LOC) (Month \T\ Age) - 0(Both) 1c. LOC Commands (Open \T\ Closes Eyes/Bread Pan Greaser) - 0(Both) 2. Best Gaze (Lateral Gaze Paresis) - 0(Normal) 3. Visual Field Loss - 0(No visual loss) 4. Facial Palsy - 0(Normal) 5a. Left Arm: Motor (10-second hold) - 0(No drift) 5b. Right Arm: Motor (10-second hold) - 0(No drift) 6a. Left Leg: Motor (5-second hold - always test supine) - 0(No drift) 6b. Right Leg: Motor (5-second hold - always test supine) - 0(No drift) 7. Limb Ataxia (finger/nose \T\ heel/virk - test with eyes open) - 0(Absent) 8. Sensory Loss (pinprick arms/legs/face) - 0(Normal) 9. Best Language: Aphasia (description/naming/reading) - 0(No aphasia) Initials: sp4 Signatures: Dispatcher [employer] EDOR Louise Mederos RN RN ha1 Gallito Gregory MD MD sp4 Nimisha Cast RN RN km8 Corrections: (The following items were deleted from the chart) 06:47 06:46 BP 125 / 76; Pulse 72bpm; Resp 16bpm; Pulse Ox 100% RA; km8 km8
--- NOTE | 2023-12-06 06:34 | EDPHYS ---
Physician Documentation [facility] Name: Carina Quinn Age: 68 yrs Sex: Female : 1955 Arrival Date: 12/06/2023 Time: 03:15 Bed 5 Private MD: ED Physician Gallito Gregory HPI: 12/05 03:21 This 68 yrs old Female presents to ER via EMS with complaints of Back Pain. sp4 03:42 Patient's medications include Trent 10 twice a day, gabapentin 304 times a day, sp4 omeprazole 40 mg daily, gemfibrozil 600 mg daily, sertraline 100 mg daily, buspirone 5 mg twice a day, lisinopril 20 mg daily, ropinirole 2 mg twice a day, trazodone 100 mg at bedtime, vitamin B6 twice a day, alendronate 35 mg once a week, ProAir, multivitamin tablet, melatonin. Medical history includes fibromyalgia, degenerative disc disease, hypertensive disorder, asthma, hypercholesterolemia, arthritis, sleep apnea, depressive disorder, anxiety, osteoporosis.. 68-year-old female presents with acute onset of fall at home reportedly backwards. Patient states that she feels dizzy from her medications and fell onto the floor causing moderate to severe pain in the left lower spine. Patient reports pain is 10 out of 10. . Historical: - Allergies: 03:24 Darvocet-N 100; km8 - Home Meds: 03:27 hydrocodone-acetaminophen 10-325 mg Oral tablet 2 times per day [Active]; gabapentin km8 300 mg oral capsule four times a day [Active]; omeprazole 40 mg Oral capsule,delayed release (e.c.) [Active]; gemfibrozil 600 mg Oral tablet [Active]; sertraline 100 mg oral tablet 1 tab daily [Active]; buspirone 5 mg Oral tablet 2 times per day [Active]; lisinopril 20 mg Oral tablet once [Active]; ropinirole 2 mg oral tablet 2 times per day [Active]; trazodone 100 mg Oral tablet every day at bedtime [Active]; Vitamin B-6 100 mg Oral tablet 2 times per day [Active]; alendronate 35 mg oral tablet 1 tab every week [Active]; ProAir RespiClick 90 mcg/actuation inhalation Aerosol Powder, Breath Activated as needed [Active]; multivitamin oral tablet [Active]; Melatonin Oral [Active]; - PMHx: 03:24 Fibromyalgia; degenerative disc disease; Hypertensive disorder; Asthma; km8 Hypercholesterolemia; Arthritis; Sleep apnea; Depressive disorder; Anxiety; Osteoporosis; sciatica; - PSHx: 03:26 D\T\C; breast augmentation; Total abdominal hysterectomy; km8 - Immunization history:: Client reports receiving the 2nd dose of the Covid vaccine, Flu vaccine is up to date. - Social history:: Smoking status: Patient denies any tobacco usage or history of. Patient uses alcohol, on a daily basis. street drugs, marijuana. - Family history:: not pertinent. ROS: 03:42 Constitutional: Negative for fever, chills, and weight loss, Eyes: Negative for injury, sp4 pain, redness, and discharge, Back: Positive left lower back pain , positive overall spinal pain 03:42 All other systems are negative, Exam: 03:42 Constitutional: This is a female who is awake, alert, and in moderate distress sp4 secondary to pain, physically debilitated female Head/Face: Normocephalic, atraumatic. Eyes: Pupils equal round and reactive to light, extra-ocular motions intact. Lids and lashes normal. Conjunctiva and sclera are not injected. Cornea within normal limits. Periorbital areas with no swelling, redness, or edema. ENT: Nares patent. No nasal discharge, no septal abnormalities noted. Tympanic membranes are normal and external auditory canals are clear. Oropharynx with no redness, swelling, or masses, exudates, or evidence of obstruction, uvula midline. Mucous membranes moist. Neck: Trachea midline, no thyromegaly or masses palpated, and no cervical lymphadenopathy. Supple, full range of motion without nuchal rigidity, or vertebral point tenderness. Chest/axilla: Normal chest wall appearance and motion. Nontender with no deformity. No lesions are appreciated. Cardiovascular: Regular rate and rhythm with a normal S1 and S2. No gallops, murmurs, or rubs. Normal PMI, no JVD. No pulse deficits. Respiratory: Lungs have equal breath sounds bilaterally, clear to auscultation and percussion. No rales, rhonchi or wheezes noted. No increased work of breathing, no retractions or nasal flaring. Abdomen/GI: Soft, with normal bowel sounds. No distension or tympany. No guarding or rebound. No evidence of tenderness throughout. Back: Positive lower spinal tenderness , positive left lower paraspinal tenderness. No deformity or step-off Skin: Warm, dry with normal turgor. Normal color with no rashes, no lesions, and no evidence of cellulitis. MS/ Extremity: Pulses equal, no cyanosis. Neurovascular intact. Full, normal range of motion. Neuro: Awake and alert, GCS 15, oriented to person, place, time, and situation. Cranial nerves II-XII grossly intact. Motor strength 5/5 in all extremities. Sensory grossly intact. Psych: Awake, alert, with orientation to person, place and time. Behavior, mood, and affect are within normal limits Vital Signs: 03:20 BP 110 / 75; Pulse 69; Resp 18; Temp 98.4(TE); Pulse Ox 99% on R/A; Weight 58.97 kg [facility] (R); Height 5 ft. 3 in. (R); Pain 10/10; 04:00 BP 110 / 75; Pulse 70; Resp 17 S; Pulse Ox 99% on R/A; ha1 05:00 Pulse 68; Resp 16; Pulse Ox 99% on R/A; 8 05:24 BP 120 / 77; Pulse 84; Resp 16; Pulse Ox 97% on R/A; km8 06:46 BP 125 / 76; Pulse 72; Resp 16; Temp 98.2(TE); Pulse Ox 100% on R/A; Pain 6/10; km8 03:20 Body Mass Index 23.03 (58.97 kg, 160.02 cm) [facility] 03:20 Pain Scale: Adult 8 06:46 Pain Scale: Adult km8 NIH Stroke Scale Scores: 03:42 NIHSS Score: 0 sp4 Clary Coma Score: 03:23 Eye Response: spontaneous(4). Motor Response: obeys commands(6). Verbal Response: km8 oriented(5). Total: 15. 03:42 Eye Response: spontaneous(4). Motor Response: obeys commands(6). Verbal Response: sp4 oriented(5). Total: 15. MDM: 03:25 Patient medically screened. sp4 06:17 ED course: IMPRESSION: 1. No acute intracranial abnormality. 2. No acute cervical sp4 osseous abnormality. 3. No acute traumatic injury of the chest, abdomen, or pelvis. 4. Acute appearing incomplete burst fracture of L1 which is new from 03/15/2022, correlate for point tenderness. 5. No acute osseous finding of the thoracic spine. 6. Attention to nonemergent incidental findings: Small pericardial effusion. Calcified lesion which appears intradural extramedullary at the level of T10 which is unchanged from 2021 and likely represents a meningioma. Additional chronic and incidental findings above. Electronically signed by: Gabe Xie MD 12/06/2023 04:55 AM. 06:29 Differential diagnosis: Fatigue Fracture ruptured disc, spinal injury. Data reviewed: sp4 vital signs, nurses notes, EMS record, radiologic studies, CT scan. ED course: There is acute appearing L1 superior endplate fracture without retropulsion and spinal canal is intact. Patient has also moderate degenerative spinal changes T to L-spine. Will advise visit with paint and table edger to increase temporarily hydrocodone regimen 3 times a day. Will also prescribe Tylenol No. 4 temporarily until patient can see her pain management doctor. And then we will advise patient to see fiberglass boat finisher for echocardiogram secondary to incidental finding of small amount of pericardial effusion. . 06:39 Consideration of Admission/Observation Escalation of care including sp4 admission/observation considered. 12/05 03:41 Order name: CT Traumagram (Head C Spine CAP wo con) sp4 Administered Medications: 03:30 Drug: Trent PO 10 mg-325 mg 1 tabs PO once Route: PO; ha1 05:00 Follow up: Response: No adverse reaction; Pain is decreased km8 03:30 Drug: Cyclobenzaprine PO 10 mg PO once Route: PO; ha1 06:31 Follow up: Response: No adverse reaction; Pain is decreased km8 03:30 Drug: Promethazine PO 25 mg PO once Route: PO; ha1 05:00 Follow up: Response: No adverse reaction; Pain is decreased km8 03:33 Drug: Ketorolac IM 30 mg IM once Route: IM; Site: right deltoid; ha1 05:00 Follow up: Response: No adverse reaction; Pain is decreased km8 03:46 Drug: Tetanus-Diphtheria Toxoid IM Adult 0.5 ml IM once; Provide Vaccine Information ha1 Statement (VIS). {Programming Specialist: [employer]; Exp: FriOct 11 2025; Lot #: [id number]; Series: 1 of 1; Patient Consent: Obtained; Date/Time: ; Source Name: Carina Quinn; Source Relationship: Self; Address Information: [address] [place] [id number]; ; Education: Provided; VIS Presented Date: ; VIS Publication: Tetanus/Diphtheria (Td) VIS 11/02/2013 (historic)} Route: IM; Site: left deltoid; 06:31 Follow up: Response: No adverse reaction km8 06:30 Drug: Trent PO 10 mg-325 mg 1 tabs PO once Route: PO; km8 06:47 Follow up: Response: No adverse reaction; Pain is decreased 8 06:30 Drug: Ondansetron PO 4 mg PO once Route: PO; km8 06:47 Follow up: Response: No adverse reaction km8 Disposition Summary: 12/06/23 06:34 Discharge Ordered Problem: new sp4 Symptoms: have improved sp4 Condition: Stable sp4 Diagnosis - L1 vertebra superior endplate compression fracture without retropulsion , acute sp4 fall at home, acute spinal injury Followup: sp4 - With: Dano Howard DO - When: 7 - 10 days - Reason: Recheck today's complaints Discharge Instructions: - Discharge Summary Sheet sp4 - Spinal Compression Fracture sp4 Forms: - Patient Portal Instructions sp4 Prescriptions: - acetaminophen-codeine 300-60 mg Oral tablet - take 1 tablet ORAL route every 8 hours PRN pain; 20 tablet; Refills: 0, Product sp4 Selection Permitted - Ibuprofen 600 mg Oral Tablet - take 1 tablet ORAL route every 6 hours As needed take with food; 30 tablet; sp4 Refills: 0, Product Selection Permitted - Cyclobenzaprine 10 mg Oral Tablet - take 1 tablet ORAL route every 8 hours As needed; 30 tablet; Refills: 0, sp4 Product Selection Permitted NIH Stroke Scale - NIH Stroke Score Date: 12/06/2023 Time: 03:42 Total Score = 0 10. Dysarthria (speech clarity - read or repeat words) - 0(Normal) 11. Extinction and Inattention (visual/tactile/auditory/spatial/personal) - 0(No abnormality) 1a. Level of Consciousness (LOC) - 0(Alert) 1b. Level of Consciousness (LOC) (Month \T\ Age) - 0(Both) 1c. LOC Commands (Open \T\ Closes Eyes/Sneller Hand) - 0(Both) 2. Best Gaze (Lateral Gaze Paresis) - 0(Normal) 3. Visual Field Loss - 0(No visual loss) 4. Facial Palsy - 0(Normal) 5a. Left Arm: Motor (10-second hold) - 0(No drift) 5b. Right Arm: Motor (10-second hold) - 0(No drift) 6a. Left Leg: Motor (5-second hold - always test supine) - 0(No drift) 6b. Right Leg: Motor (5-second hold - always test supine) - 0(No drift) 7. Limb Ataxia (finger/nose \T\ heel/virk - test with eyes open) - 0(Absent) 8. Sensory Loss (pinprick arms/legs/face) - 0(Normal) 9. Best Language: Aphasia (description/naming/reading) - 0(No aphasia) Initials: sp4 Signatures: Dispatcher [employer] Louise Solo, RN RN ha1 Gallito Gregory MD MD sp4 Nimisha Cast RN RN km8
[2023-12-06 07:17] VITALS: BP 125/76; TEMP 98.2; O2SAT 100
--- NOTE | 2023-12-06 16:18 | RAD REPORT ---
EXAM DESCRIPTION: CT - Head C Spine Cap Wo Con - 12/06/2023 6:09 am CLINICAL HISTORY: Female, 68 years old, acute fall , spinal pain COMPARISON: CT abdomen/pelvis 03/15/2022 TECHNIQUE: CT acquisition of the head, cervical spine, and chest/abdomen/pelvis without contrast. Co viktor and sagittal reformats provided. This exam was performed according to departmental dose-optimiz ation program which includes automated exposure control, adjustment of the mA and/or kV according to patient size, and/or use of iterative reconstruction technique. FINDINGS: SUPPORTIVE DEVICES: None. HEAD: Brain: No evidence of intracranial hemorrhage, mass effect, midline shift, edema, or extra-axial flui d collection. Patchy areas of hypodensity are noted throughout the cerebral white matter most likely due to chronic microvascular ischemic changes. CSF Spaces: The ventricles and sulci are mildly enlarged consistent with mild global parenchymal volu me loss. Skull: No acute fracture. Soft tissue: No evidence of scalp or soft tissue injury. Other: The imaged facial bones are intact. The globes and orbits are unremarkable. Trace mucosal thic kening of the left maxillary sinus. CERVICAL SPINE: Morphology: Normal vertebral body heights. No identified fracture. Alignment: No traumatic listhesis. Degenerative grade 1 anterolisthesis of C3-C4 and C4-C5. Craniocervical Junction: Intact. Disc Levels: Mild to moderate multilevel spondylosis most pronounced at C5-C6. Other: No acute finding of the neck soft tissues. Dystrophic left thyroid calcifications. Lack of intravenous contrast limits evaluation of the cardiomediastinal and abdominopelvic viscera, a nd vascular structures. CHEST: Vasculature: No noncontrast evidence of injury. Heart and Pericardium: Normal heart size. Small pericardial effusion. Mediastinum: No mediastinal hematoma. Small amount of thymic tissue is present. Unremarkable esophagu s with small hiatal hernia. Lungs and Airways: No pulmonary contusion or laceration. Mild dependent atelectasis. Pleural Space: No pneumothorax or hemothorax. ABDOMEN/PELVIS: Liver: No evidence of liver injury. Gallbladder/Biliary System: Unremarkable. Pancreas: No evidence of pancreatic injury. Spleen: No evidence of splenic injury. Adrenals: Unremarkable. Kidneys and Ureters: No evidence of injury. Bladder: No gross bladder contusion or obvious rupture. Reproductive Organs: Absent uterus. No identified pelvic mass. Vasculature: No noncontrast evidence of injury. Mesentery and Peritoneum: No hemoperitoneum or pneumoperitoneum. Bowel: Atraumatic appearance. THORACIC AND LUMBAR SPINE: Morphology: Subtle superior endplate fracture lucency of the L1 vertebral body not involving the post erior cortex. Chronic anterior wedging of T11-T12 is unchanged. Alignment: No traumatic listhesis. Disc Levels: Mild to moderate multilevel degenerative changes. Canal: Calcified 1.1 cm eccentric lesion within the spinal canal at the level of T10, unchanged. MUSCULOSKELETAL: Chest Wall: No rib or sternal fracture. Partially imaged uniformly fat density 5.6 cm mass appearing within the right supraspinatus muscle compatible with a lipoma. Pelvis: No fracture. Proximal Appendicular Bones and Joints: No fracture or joint malalignment. Muscles and Subcutaneous Tissues: No soft tissue injury. IMPRESSION: 1. No acute intracranial abnormality. 2. No acute cervical osseous abnormality. 3. No acute traumatic injury of the chest, abdomen, or pelvis. 4. Acute appearing incomplete burst fracture of L1 which is new from 03/15/2022, correlate for point tenderness. 5. No acute osseous finding of the thoracic spine. 6. Attention to nonemergent incidental findings: Small pericardial effusion. Calcified lesion which appears intradural extramedullary at the level of T10 which is unchanged from 2021 and likely repres ents a meningioma. Additional chronic and incidental findings above. Electronically signed by: Gabe Xie MD 12/06/2023 04:55 AM MAIL HANDLER SORTER Due to temporary technical issues with the PACS/Fluency reporting system, reports are being signed by the in house radiologists without review as a courtesy to insure prompt reporting. The interpreting radiologist is fully responsible for the content of the report.
== END ==
LOC: ER 03:15
DX: S32.010A Wedge compression fracture of first lumbar vertebra, initial encounter for closed fracture (principal); W18.30XA Fall on same level, unspecified, initial encounter; Y92.009 Unspecified place in unspecified non-institutional (private) residence as the place of occurrence of the external cause; Z23 Encounter for immunization; I10 Essential (primary) hypertension; Z88.5 Allergy status to narcotic agent; Z98.82 Breast implant status
CPT/HCPCS: 70450; 71250; 72125; 90471; 96372; 99285; Q0169; Q0162

== ENCOUNTER 2025-01-17 13:55 | Emergency (ER) | payer OTHER ==
--- NOTE | 2025-01-17 14:36 | RAD REPORT ---
EXAM:Extremity Venous Uni Ltd HISTORY: Left leg pain TECHNIQUE: Sonographic evaluation left lower extremity performed.Grayscale, color and spectral analys is performed on all vessels COMPARISON: None. FINDINGS: Left common femoral, superficial femoral, greater saphenous, popliteal and posterior tibial veins are compressible and demonstrate augmentation. Doppler demonstrates good flow. IMPRESSION: No evidence of deep venous thrombosis involving the left lower extremity.
--- NOTE | 2025-01-17 14:37 | RAD REPORT ---
EXAM:Extremity Nonvascular Limited CLINICAL HISTORY: Leg pain status post fall TECHNIQUE: Sonographic evaluation of left calf obtained. FINDINGS: 2 5.3 x 1.2 cm hypoechoic structure is present within the superficial tissues anterior mid calf. IMPRESSION: 2.5 cm hypoechoic structure anterior mid left calf probably a very small hematoma
--- NOTE | 2025-01-17 15:44 | RAD REPORT ---
EXAMINATION: Tib Fib Left CLINICAL INDICATION: Leg pain FINDINGS: No fracture seen. Mild subcutaneous tissue swelling adjacent to the anterior aspect of the mid tibia.
--- NOTE | 2025-01-17 16:05 | ER ---
Nurse's Notes [facility] Name: Carina Quinn Age: 69 yrs Sex: Female : 1955 Arrival Date: 01/17/2025 Time: 13:55 Bed 10 Private MD: Diagnosis: Hematoma of left lower extremity;Acute upper respiratory infection, unspecified Presentation: 01/17 14:00 Chief complaint: Patient states: she has been having left lower leg pain after tripping ap3 at the [employer] approx 10 days ago. patient currently rates her pain as a 5/10 on the pain scale. Coronavirus screen: At this time, the client does not indicate any symptoms associated with coronavirus-19. Ebola Screen: No symptoms or risks identified at this time. Initial Sepsis Screen: Does the patient meet any 2 criteria? No. Patient's initial sepsis screen is negative. Does the patient have a suspected source of infection? No. Patient's initial sepsis screen is negative. Risk Assessment: Do you want to hurt yourself or someone else? Patient reports no desire to harm self or others. Onset of symptoms was January 07, 2025. 14:00 Method Of Arrival: Ambulatory ap3 14:00 Acuity: SYD[place] 4 ap3 Triage Assessment: 14:05 General: Appears in no apparent distress. Behavior is calm, cooperative, appropriate ap3 for age. Pain: Complains of pain in left leg Pain currently is 5 out of 10 on a pain scale. Neuro: Level of Consciousness is awake, alert, obeys commands, Oriented to person, place, time, situation, Appropriate for age. Cardiovascular: Patient's skin is warm and dry. Respiratory: Airway is patent Respiratory effort is even, unlabored, Respiratory pattern is regular, symmetrical. Historical: - Allergies: 14:04 Darvocet-N 100; ap3 - PMHx: 14:04 Anxiety; Arthritis; Asthma; Degenerative disc disease; depressive disorder; ap3 Fibromyalgia; Hypercholesterolemia; Hypertensive disorder; Osteoporosis; sciatica; Sleep Apnea; - Immunization history:: Client reports receiving the 2nd dose of the Covid vaccine, Flu vaccine is up to date. - Infectious Disease History:: Denies. - Social history:: Smoking status: Patient denies any tobacco usage or history of. Screenin:05 Abuse screen: Denies threats or abuse. Nutritional screening: No deficits noted. ap3 Tuberculosis screening: No symptoms or risk factors identified. 16:20 [facility] ED Fall Risk Assessment (Adult) History of falling in the last 3 months, bp including since admission No falls in past 3 months (0 pts) Confusion or Disorientation No (0 pts) Intoxicated or Sedated No (0 pts) Impaired Gait No (0 pts) Mobility Assist Device Used No (0 pt) Altered Elimination No (0 pt) Score/Fall Risk Level 0 - 2 = Low Risk Oriented to surroundings. Assessment: 15:20 General: Appears in no apparent distress. comfortable, Behavior is cooperative, bp appropriate for age, anxious. Vital Signs: 14:00 BP 142 / 88; Pulse 74; Resp 17; Temp 98.7; Pulse Ox 98% on R/A; Weight 56.7 kg; Height ap3 5 ft. 3 in. ; Pain 5/10; 14:00 Body Mass Index 22.14 (56.70 kg, 160.02 cm) ap3 14:00 Pain Scale: Adult ap3 ED Course: 13:57 Patient arrived in ED. im 13:58 Geri Tracey PA-C is PHCP. sb4 13:58 Laura Reeder MD is Attending Physician. sb4 14:04 Triage completed. ap3 14:05 Arm band placed on left wrist. ap3 14:31 Extremity Venous Uni Ltd US In Process Unspecified. EDMS 14:31 US Extrmty Nonvasular Limited In Process Unspecified. EDMS 15:17 Tib Fib Left XRAY In Process Unspecified. EDMS 15:19 Parth Schreiber, RN is Primary Nurse. bp 15:20 Patient has correct armband on for positive identification. bp 16:19 No provider procedures requiring assistance completed. Patient did not have IV access bp during this emergency room visit. 16:20 Provided Education on: na. bp Administered Medications: No medications were administered Medication: 16:20 VIS not applicable for this client. bp Outcome: 16:05 Discharge ordered by . sb4 16:19 Discharged to home via wheelchair, bp 16:19 Condition: stable 16:19 Discharge instructions given to patient, Instructed on discharge instructions, follow up and referral plans. medication usage, Demonstrated understanding of instructions, follow-up care, medications, Prescriptions given X 2, 16:21 Patient left the ED. bp Signatures: Dispatcher [employer] EDMS Parth Schreiber RN RN bp Kendra Cassidy RN RN ap3 Geri Tracey, HARRISON PA-Mil sb4 Racheal Elizalde
--- NOTE | 2025-01-17 16:05 | EDPHYS ---
Physician Documentation [facility] Name: Carina Quinn Age: 69 yrs Sex: Female : 1955 Arrival Date: 01/17/2025 Time: 13:55 Bed 10 Private MD: ED Physician Laura Reeder HPI: 01/17 14:12 This 69 yrs old Female presents to ER via Ambulatory with complaints of leg injury. sb4 14:47 Patient states that she tripped and fell about 10 days ago, injuring her left virk. She sb4 states that there has been a bump on that area this entire time and has not gone away. She states that she got concerned because today her left foot started feeling numb. Only reports pain in the area of the swelling. No calf tenderness. No redness, warmth. Historical: - Allergies: 14:04 Darvocet-N 100; ap3 - PMHx: 14:04 Anxiety; Arthritis; Asthma; Degenerative disc disease; depressive disorder; ap3 Fibromyalgia; Hypercholesterolemia; Hypertensive disorder; Osteoporosis; sciatica; Sleep Apnea; - Immunization history:: Client reports receiving the 2nd dose of the Covid vaccine, Flu vaccine is up to date. - Infectious Disease History:: Denies. - Social history:: Smoking status: Patient denies any tobacco usage or history of. ROS: 14:47 Constitutional: Negative for fever, chills, and weight loss, sb4 14:47 MS/extremity: Positive for injury or acute deformity, pain, swelling, tenderness, of the left virk, 14:47 All other systems are negative, Exam: 14:47 Constitutional: This is a well developed, well nourished patient who is awake, alert, sb4 and in no acute distress. Head/Face: Normocephalic, atraumatic. Eyes: Extra-ocular motions intact. Periorbital areas with no swelling, redness, or edema. ENT: Mucous membranes moist. Cardiovascular: Regular rate and rhythm with a normal S1 and S2. Respiratory: No increased work of breathing, no retractions or nasal flaring. Abdomen/GI: Soft, non-tender, no distension. 14:47 Skin: injury, contusion(s), that are superficial, of the left virk, Vital Signs: 14:00 BP 142 / 88; Pulse 74; Resp 17; Temp 98.7; Pulse Ox 98% on R/A; Weight 56.7 kg; Height ap3 5 ft. 3 in. ; Pain 5/10; 14:00 Body Mass Index 22.14 (56.70 kg, 160.02 cm) ap3 14:00 Pain Scale: Adult ap3 MDM: 14:05 Medical Screening Exam initiated sb4 16:06 Data reviewed: vital signs, nurses notes, radiologic studies, and as a result, I will sb4 discharge patient. Counseling: I had a detailed discussion with the patient and/or guardian regarding the historical points, exam findings, and any diagnostic results supporting the discharge/admit diagnosis, radiology results, the need for outpatient follow up, for definitive care, to return to the emergency department if symptoms worsen or persist or if there are any questions or concerns that arise at home. 01/17 14:06 Order name: Tib Fib Left XRAY; Complete Time: 15:44 sb4 01/17 14:06 Order name: Extremity Venous Uni Ltd US; Complete Time: 14:38 sb4 01/17 14:06 Order name: US Extrmty Nonvasular Limited; Complete Time: 14:38 sb4 01/17 16:04 Order name: Krzysztof Wrap: onto virk; Complete Time: 16:19 sb4 Administered Medications: No medications were administered Disposition Summary: 01/17/25 16:05 Discharge Ordered Notes: Location: Home sb4 Problem: an ongoing problem sb4 Symptoms: are unchanged sb4 Condition: Stable sb4 Diagnosis - Hematoma of left lower extremity sb4 - Acute upper respiratory infection, unspecified sb4 Followup: sb4 - With: Private Physician - When: 1 week - Reason: Recheck today's complaints, Re-evaluation by your physician Discharge Instructions: - Discharge Summary Sheet sb4 - Hematoma, [id number] sb4 - Upper Respiratory Infection, Adult, [id number] sb4 Forms: - Patient Portal Instructions sb4 - Leadership Thank You Letter sb4 Prescriptions: - Nancy-D 12 Hour 60-120 mg Oral Tablet Sustained Release 12 hr - take 1 tablet ORAL route every 12 hours As needed; 30 tablet; Refills: 0, sb4 Product Selection Permitted - Prednisone 20 mg Oral Tablet - take 1 tablet ORAL route once daily for 5 days; 5 tablet; Refills: 0, Product sb4 Selection Permitted Addendum: 01/19/2025 07:10 Co-signature as Attending Physician, Laura Reeder MD I agree with the assessment and g b1 plan of care. I reviewed the patient's care provided by the Advanced Practice Provider and agree with the diagnosis and treatment plan. Signatures: Dispatcher [employer] Kendra Lopez, RN RN ap3 Geri Tracey, PAFeliciaC PA-C sb4 Laura Reeder MD MD gb1 Corrections: (The following items were deleted from the chart) 01/17 14:07 14:07 Tib Fib Left+RAD.RAD.BRZ ordered. EDMS EDMS 14: 14:07 Extremity Venous Uni Ltd+US.RAD.BRZ ordered. EDMS EDMS 14: 14:07 Extrmty Nonvasular Limited+US.RAD.BRZ ordered. EDMS EDMS
[2025-01-17 17:10] VITALS: BP 142/88; TEMP 98.7; O2SAT 98
== END 2025-01-17 16:21 | disposition home or self-care (01) ==
LOC: ER 13:55
DX: S80.12XA Contusion of left lower leg, initial encounter (principal); J06.9 Acute upper respiratory infection, unspecified
CPT/HCPCS: 76882; 93971; 99283